=== PATIENT | female | born 1995 | race Caucasian/White ===

== ENCOUNTER 2024-11-07 20:04 | Emergency (ER) | payer MEDICAID ==
[~2024-11-07] VITALS: Ht 162.6 cm; Wt 65.0 kg
[2024-11-07 20:45] VITALS: TEMP 36.8; O2SAT 100
[2024-11-07 20:50] VITALS: O2SAT 98
[2024-11-07 23:39] VITALS: BP 106/56; PULSE 70; RESP 16
[2024-11-07] MEDS: IBUPROFEN 600MG TABLET PO ONE (23:39)
== END 2024-11-08 00:03 | disposition home or self-care (01) ==
LOC: ER 20:04
DX: M79.641 Pain in right hand (principal)
CPT/HCPCS: 73130; 99283